=== PATIENT | female | born 1960 | race Caucasian/White ===

== ENCOUNTER → 2019-09-26 08:45 | Outpatient (CLI) | payer OTHER, MEDICAID, SELFPAY ==
[2019-09-26 09:47] LABS: Cholesterol 188 mg/dL (140-199); HDL Cholesterol 53 mg/dL (40-60); LDL Cholesterol Calculated 114 mg/dL (<100); Triglycerides 104 mg/dL (35-150)
[2019-09-26 10:03] LABS: Vitamin D 25 Hydroxy (D3) 54.5 ng/mL (30.0-100.0)
[2019-09-26 10:48] LABS: Hemoglobin A1C% w Est Avg Glu 6.1 % (4.0-6.0)
== END ==
PROVIDERS: PCP Student in an Organized Health Care Education/Training Program; Visit Provider Student in an Organized Health Care Education/Training Program
DX: Z13.220 Encounter for screening for lipoid disorders (principal); E55.9 Vitamin D deficiency, unspecified; E66.9 Obesity, unspecified; R73.09 Other abnormal glucose
CPT/HCPCS: 36415; 80061; 82306; 83036

== ENCOUNTER → 2020-03-12 07:05 | Outpatient (CLI) | payer OTHER, SELFPAY ==
[2020-03-12 08:17] LABS: Hemoglobin A1C% w Est Avg Glu 6.9 % (4.0-6.0)
[2020-03-12 08:27] LABS: Alanine Aminotransferase 31 IU/L (<35); Albumin 4.1 g/dL (3.5-5.0); Albumin Globulin Ratio 1.3 (1.0-2.8); Alkaline Phosphatase 74 U/L (38-126); Aspartate Aminotransferase 28 IU/L (14-36); BUN Creatinine Ratio 32.4 (6-22); Bilirubin Total 0.5 mg/dL (0.2-1.3); Blood Urea Nitrogen 22 mg/dL (7-17); Calcium 9.5 mg/dL (8.4-10.2); Carbon Dioxide 24 mmol/L (22-32); Chloride 105 mmol/L (98-107); Cholesterol 143 mg/dL (140-199); Estimated Glomerular Filt Rate > 60.0 mL/min (>60); Globulin 3.1 g/dL (1.7-4.1); Glucose 131 mg/dL (80-110); HDL Cholesterol 47 mg/dL (40-60); HEMOLYSIS < 15 (0-50); LDL Cholesterol Calculated 77 mg/dL (<100); Potassium 4.5 mmol/L (3.4-5.1); Sodium 139 mmol/L (137-145); Total Protein 7.2 g/dL (6.3-8.2); Triglycerides 95 mg/dL (35-150)
== END ==
PROVIDERS: PCP Student in an Organized Health Care Education/Training Program; Referring Provider Student in an Organized Health Care Education/Training Program; Visit Provider Student in an Organized Health Care Education/Training Program
DX: E11.9 Type 2 diabetes mellitus without complications (principal); E78.2 Mixed hyperlipidemia; F17.200 Nicotine dependence, unspecified, uncomplicated; I10 Essential (primary) hypertension
CPT/HCPCS: 36415; 80053; 80061; 83036

== ENCOUNTER → 2020-07-15 07:10 | Outpatient (CLI) | payer OTHER, SELFPAY ==
[2020-07-15 09:07] LABS: Hemoglobin A1C% w Est Avg Glu 6.5 % (4.0-6.0)
[2020-07-15 09:28] LABS: Creatinine Urine Random 280.5 mg/dL
[2020-07-15 09:34] LABS: Microalbumi Creatinin Ratio Ur 3.5 ug/mg CR (<30)
== END ==
PROVIDERS: PCP Student in an Organized Health Care Education/Training Program; Referring Provider Student in an Organized Health Care Education/Training Program; Visit Provider Student in an Organized Health Care Education/Training Program
DX: E11.9 Type 2 diabetes mellitus without complications (principal)
CPT/HCPCS: 36415; 82043; 82570; 83036